=== PATIENT | female | born 1950 | race Caucasian/White ===

== ENCOUNTER → 2021-05-22 | Outpatient (CLI) | payer MEDICARE, BC | LOC: MRI 05-10 09:30 → KOH-I 05-13 10:15 | DX: M25.551 Pain in right hip (principal); M25.451 Effusion, right hip; M76.01 Gluteal tendinitis, right hip | CPT/HCPCS: 73721 ==

== ENCOUNTER 2021-08-18 16:03 | Inpatient (IN) | payer MEDICARE, BC ==
[~2021-08-18] VITALS: Ht 165.1 cm; Wt 99.3 kg
[2021-08-18 18:55] LABS: HEMOGLOBIN 16.7 gm/dl (12.3-15.3); RED BLOOD COUNT 5.44 M/UL (4.00-5.10); WHITE BLOOD COUNT 11.6 K/UL (4.5-11.0)
[2021-08-18 19:22] LABS: BUN/CREATININE RATIO 21 (0-10)
[2021-08-19 05:18] LABS: HEMOGLOBIN 16.9 gm/dl (12.3-15.3); RED BLOOD COUNT 5.61 M/UL (4.00-5.10); WHITE BLOOD COUNT 11.1 K/UL (4.5-11.0)
[2021-08-19 07:14] LABS: BUN/CREATININE RATIO 21 (0-10)
[2021-08-19] MEDS ORDERED: VITAMIN D21250 MCG PO (10:23)
[2021-08-19] MEDS ORDERED: METFORMIN HCL1000 MG PO (10:24)
[2021-08-19] MEDS ORDERED: ESCITALOPRAM OX20 MG PO (10:24)
[2021-08-19] MEDS ORDERED: TRAMADOL HCL50 MG PO (10:24)
[2021-08-19] MEDS ORDERED: BUSPIRONE HCL5 MG PO (10:25)
[2021-08-19] MEDS ORDERED: MONTELUKAST SOD10 MG PO (10:25)
[2021-08-19] MEDS ORDERED: IPRAT-ALBUT 0.5-3 ML INH (10:25)
[2021-08-19] MEDS ORDERED: FUROSEMIDE40 MG PO (10:26)
[2021-08-19] MEDS ORDERED: HYDROCHLOROTH12.5 M1 PO (10:26)
[2021-08-19] MEDS ORDERED: POTASSIUM CHLO20 ME2 PO (10:27)
[2021-08-19] MEDS ORDERED: SPIRONOLACTONE25 MG PO (10:28)
[2021-08-19] MEDS ORDERED: LISINOPRIL10 MG PO (10:28)
[2021-08-19] MEDS ORDERED: NITROGLYCERIN0.4 MG SL (10:29)
[2021-08-19] MEDS ORDERED: ANORO ELLIPTA1 EACH INH (10:29)
--- NOTE | 2021-08-20 19:07 | NUR ---
08/20/211906 REPORT CALLED TO [facility] TO BE TRANSFERRD TO ROOM 4125
--- NOTE | 2021-08-20 19:49 | NUR ---
PT TRANSFERRED TO ROOM 4124 ON 4L NC. PT STABLE AT THE TIME OF TRANSFER.
--- NOTE | 2021-08-20 20:38 | NUR ---
PT TRANSFERED TO ROOM 4124 ON 4L NC. PT STABLE AT THE TIME OF TRANSFER.
[2021-08-21 07:15] LABS: RED BLOOD COUNT 5.13 M/UL (4.00-5.10); WHITE BLOOD COUNT 9.6 K/UL (4.5-11.0)
[2021-08-21 07:47] LABS: BUN/CREATININE RATIO 25 (0-10)
[2021-08-22 07:04] LABS: HEMOGLOBIN 15.4 gm/dl (12.3-15.3); RED BLOOD COUNT 5.2 M/UL (4.00-5.10); WHITE BLOOD COUNT 7.4 K/UL (4.5-11.0)
[2021-08-22 09:35] LABS: BUN/CREATININE RATIO 22 (0-10)
[2021-08-23 09:21] LABS: HEMOGLOBIN 16.5 gm/dl (12.3-15.3); RED BLOOD COUNT 5.49 M/UL (4.00-5.10); WHITE BLOOD COUNT 6.7 K/UL (4.5-11.0)
[2021-08-23 09:42] LABS: BUN/CREATININE RATIO 25 (0-10)
[2021-08-23] MEDS ORDERED: LOPRESSOR 25 MG25 MG PO (10:13)
[2021-08-23] MEDS ORDERED: PATIENT'S OWN MEDICA INH (10:13)
[2021-08-23] MEDS ORDERED: OMNICEF 300 MG300 MG PO (10:13)
[2021-08-23] MEDS ORDERED: PROTONIX 40 MG40 M1 PO (10:13)
[2021-08-23] MEDS ORDERED: ASPIRIN EC81 MG PO (10:13)
[2021-08-24 04:47] LABS: HEMOGLOBIN 16.2 gm/dl (12.3-15.3); RED BLOOD COUNT 5.47 M/UL (4.00-5.10)
[2021-08-24 04:48] LABS: WHITE BLOOD COUNT 9.7 K/UL (4.5-11.0)
[2021-08-24 05:51] LABS: BUN/CREATININE RATIO 31 (0-10)
[2021-08-25 05:29] LABS: HEMOGLOBIN 16.3 gm/dl (12.3-15.3); RED BLOOD COUNT 5.49 M/UL (4.00-5.10); WHITE BLOOD COUNT 8.6 K/UL (4.5-11.0)
[2021-08-25 05:59] LABS: BUN/CREATININE RATIO 31 (0-10)
[2021-08-25] MEDS ORDERED: DEXAMETHASONE6 MG PO (19:01)
== END 2021-08-25 20:35 | disposition home or self-care (01) | DRG 177 ==
LOC: ER1 16:03 → 3 EAST 08-19 00:47 → CDU 08-19 00:47 → 3 EAST 08-19 21:30 → MED SURG 4 08-20 20:46
PROVIDERS: Internal Medicine; Internal Medicine Pulmonary Disease; Physician Assistant; ADMIT Internal Medicine
PROC: 8E0ZXY6 Isolation (ICD-10-PCS; 2021-08-19)
PROC: XW033E5 Introduction of Remdesivir Anti-infective into Peripheral Vein, Percutaneous Approach, New Technology Group 5 (ICD-10-PCS; 2021-08-19)
PROC: 3E0333Z Introduction of Anti-inflammatory into Peripheral Vein, Percutaneous Approach (ICD-10-PCS; 2021-08-19)
PROC: B24BZZZ Ultrasonography of Heart with Aorta (ICD-10-PCS; principal; 2021-08-22)
DX: U07.1 COVID-19 (principal); J12.82 Pneumonia due to coronavirus disease 2019; J96.22 Acute and chronic respiratory failure with hypercapnia; J96.21 Acute and chronic respiratory failure with hypoxia; E87.1 Hypo-osmolality and hyponatremia; J44.0 Chronic obstructive pulmonary disease with (acute) lower respiratory infection; J44.1 Chronic obstructive pulmonary disease with (acute) exacerbation; I11.0 Hypertensive heart disease with heart failure; I50.9 Heart failure, unspecified; I25.10 Atherosclerotic heart disease of native coronary artery without angina pectoris; E11.65 Type 2 diabetes mellitus with hyperglycemia; E87.5 Hyperkalemia; E66.01 Morbid (severe) obesity due to excess calories; T38.0X5A Adverse effect of glucocorticoids and synthetic analogues, initial encounter; Z95.1 Presence of aortocoronary bypass graft; Z99.81 Dependence on supplemental oxygen; Z87.891 Personal history of nicotine dependence; Z90.49 Acquired absence of other specified parts of digestive tract; Z90.89 Acquired absence of other organs; Z88.1 Allergy status to other antibiotic agents; Z82.49 Family history of ischemic heart disease and other diseases of the circulatory system; Z79.4 Long term (current) use of insulin; Z98.890 Other specified postprocedural states; Z79.82 Long term (current) use of aspirin; Z68.36 Body mass index [BMI] 36.0-36.9, adult
CPT/HCPCS: ECHO; 36415; 36600; 71045; 80048; 80053; 82550; 82553; 82728; 82803; 82962; 83615; 83735; 83874; 83880; 84100; 84295; 84484; 85025; 85379; 85384; 86140; 93005; 93306; 94640; 94660; 94664; 94760; 96372; 96374; 96375; 99285; G0378; J0248; J0456; J0696; J1100; J1650; J1940; J2405; J7030; Q9967; U0002